=== PATIENT | male | born 1985 | race Caucasian/White ===

== ENCOUNTER 2016-12-10 10:32 | Emergency (ER) | payer OTHER ==
[2016-12-10] MEDS ORDERED: Metoclopramide IV* 5 MG/ML 2 ML VIAL IV ONE (11:05)
[2016-12-10] MEDS ORDERED: Morphine INJ* 4 MG/ML 1 ML SYRINGE IV ONE (11:05)
[2016-12-10] MEDS ORDERED: Pantoprazole IV* 40 MG IV ONE (11:05)
[2016-12-10] MEDS: NS 0.9% 1000 ML* 3,000 ML IV ONE ×2 (11:15→14:53)
[2016-12-10 11:26] LABS: Hematocrit 47 % (42-52); Hemoglobin 15.7 g/dl (14.0-18.0); Mean Corpuscular HGB Conc 34 g/dl (31-36); Mean Corpuscular Hemoglobin 31 pg (27-31); Mean Corpuscular Volume 93 fL (80-94); Mean Platelet Volume 9 um3 (7.4-10.4); Red Blood Count 5.05 10^6/ul (4.0-5.4); Red Cell Distribution Width 13 % (10.5-15); White Blood Count 14.2 10^3/ul (3.5-10.8)
[2016-12-10 11:42] LABS: ALT 21 U/L (7-52); Albumin 4.7 g/dL (3.2-5.2); Alkaline Phosphatase 45 U/L (34-104); Amylase 79 U/L (29-103); Blood Urea Nitrogen 22 mg/dL (6-24); C Reactive Protein 2.15 mg/L (< 5.00); CO2 Carbon Dioxide 25 mmol/L (22-32); Calcium 9.4 mg/dL (8.6-10.3); Chloride 99 mmol/L (101-111); Creatine Kinase 70 U/L (10-223); EGFR African American 129.1 (>60); EGFR Non-African American 100.4 (>60); Globulin 2.8 g/dL (2-4); Glucose 115 mg/dL (70-100); Lipase 23 U/L (11.0-82.0); Sodium 132 mmol/L (133-145); Total Protein 7.5 g/dL (6.4-8.9)
[2016-12-10] MEDS ORDERED: Iohexol 300* (CONTRAST) 10 ML SDV IV ONE (12:45)
[2016-12-10 14:23] VITALS: BP 127/75
--- NOTE | 2016-12-10 14:25 | RAD ---
INDICATION: Abdominal pain, vomiting. Question small bowel obstruction, colitis, peritonitis, gallbladder disease. COMPARISON: March 25, 2016 CT. TECHNIQUE: Multidetector CT images were obtained from the lung bases to the ischial tuberosities with 92 mL Omnipaque 300 IV and oral contrast. Multiplanar reformation. REPORT: Unremarkable visualized inferior thorax. Mildly decreased density of the liver consistent with fatty infiltration. Negative for focal hepatic lesions or biliary dilatation. No CT abnormality of the gallbladder. Unremarkable pancreas and spleen. Negative for CT abnormality of the upper GI or small bowel. The appendix is not visualized. Negative for RIGHT lower quadrant inflammatory change. Oral contrast extends to the transverse colon. Mild diverticulosis at the distal descending and sigmoid colon without findings of diverticulitis. Negative for ascites, free air, hernias. Normal adrenal glands. Symmetric nephrograms and pyelograms. Unchanged mildly hyperdense 1.7 cm and 2.0 cm exophytic cortical lesions at the midpole of the LEFT kidney compared with the December 16, 2015 exam. Additional smaller LEFT renal cortical hypodense lesions without change. Negative for hydronephrosis. Unremarkable ureters and urinary bladder. Symmetric seminal vesicles. Negative for lymphadenopathy. Normal diameter abdominal aorta and iliac arteries. Physiologic distention of the IVC. Negative for suspicious osseous lesions. IMPRESSION: 1. Suggestion of mild fatty infiltration of the liver. 2. No CT abnormality of the gallbladder or biliary dilatation. 3. The appendix is not visualized as on the prior exam. There is no inflammatory change at the RIGHT lower quadrant. 4. Mild colonic diverticulosis without findings of diverticulitis. 5. Unchanged exophytic mildly hyperdense cortical lesions of the LEFT kidney compared with the prior exam favoring benign etiology. Nonemergent renal ultrasound suggested to differentiate between a hyperdense cysts and solid lesions.
[2016-12-10 15:24] LABS: Urine Bilirubin Negative (Negative); Urine Glucose Negative (Negative); Urine Nitrite Negative (Negative)
--- NOTE | 2016-12-10 18:05 | ED ---
Shiva Cruz SooYoung, scribed for Monico Ruano MD on 12/10/16 at 1052 . Abdominal Pain/Male - HPI Summary HPI Summary: A 31 y/o M ESTRELLA presents to ED with c/o constant umbilical abd pain onset two days ago. Associated sx: nausea/dry-heaving, intermittent fever and chills. Denies: bowel changes, SOB, cough. Pt tried going to work two days ago but was unable to finish the shift. Yesterday, he was able to eat some soup and he did sleep last night. Aggravating: walking/movement. No PSHx. No recent travel. PMHx : GERD. Smoker, rare EtOH. Pt works in a dairy lab. - History of Current Complaint Chief Complaint: EDAbdPain Stated Complaint: ABD PAIN Time Seen by Provider: 12/10/16 10:45 Hx Obtained From: Patient Onset/Duration: Lasting Days, Still Present Timing: Constant Severity Initially: Moderate Severity Currently: Severe Location: Umbilical Aggravating Factor(s): Movement Associated Signs And Symptoms: Positive: Fever - and chills, Nausea. Negative: Cough, Constipation, Blood in Stool, Diarrhea - Allergies/Home Medications Allergies/Adverse Reactions: Allergies Allergy/AdvReac Type Severity Reaction Status Date / Time No Known Allergies Allergy Verified 03/25/16 10:21 PMH/Surg Hx/FS Hx/Imm Hx Previously Healthy: No Endocrine/Hematology History: Denies: Hx Anticoagulant Therapy, Hx Blood Disorders, Hx Diabetes Cardiovascular History: Denies: Hx Congestive Heart Failure, Hx Hypertension Respiratory History: Denies: Hx Asthma GI History: Reports: Hx Gastroesophageal Reflux Disease History: Reports: Other Problems/Disorders - kidney finding Denies: Hx Renal Disease Musculoskeletal History: Denies: Hx Arthritis Psychiatric History: Denies: Hx Eating Disorder Infectious Disease History: No Infectious Disease History: Denies: Hx Clostridium Difficile, Hx Hepatitis, Hx Human Immunodeficiency Virus (HIV), Hx of Known/Suspected MRSA, Hx Shingles, Hx Tuberculosis, History Other Infectious Disease, Traveled Outside the [place] in Last 30 Days - Family History Known Family History: Positive: Cardiac Disease, Hypertension, Other - cancer, kidney - Social History Occupation: Employed Full-time Lives: Alone Alcohol Use: Occasionally Hx Substance Use: Yes - previously 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 The skin is warm and dry and skin color reflects adequate perfusion. DECREASED SKIN TURGOR. HEENT: The head is normocephalic and atraumatic. The pupils are equal and reactive. PUPILS NOT PINPOINT. The conjunctivae are clear and without drainage. Nares are patent and without drainage. Mouth reveals moist mucous membranes and the throat is without erythema and exudate. TEETH IN POOR REPAIR. The external ears are intact. The ear canals are patent and without drainage. The tympanic membranes are intact. \ Neck is supple with full range of motion and non-tender. There are no carotid bruits. There is no neck vein distension. Respiratory: Chest is non-tender. DIFFUSE MILDLY DIMINISHED BREATH SOUNDS. NEG RALES AND RHONCHI. Cardiovascular: Hear is regular rate and rhythm. There is no murmur or rub auscultated. There is no peripheral edema and pulses are symmetrical and equal. Abdomen: DIFFUSE TENDERNESS TO PERCUSSION AND PALPATION. PT PULLED DR'S HAND AWAY DURING EXAM. Musculoskeletal: There is no back pain noted. Extremities are non-tender with full range of motion. There is good capillary refill. There is no peripheral edema or calf tenderness elicited. Neurological: Patient is alert and oriented to person, place and time. The patient has symmetrical motor strength in all four extremities. Cranial nerves are grossly intact. Deep tendon reflexes are symmetrical and equal in all four extremities. Psychiatric: The patient has an appropriate affect and does not exhibit any anxiety or depression. Triage Information Reviewed: Yes Vital Signs On Initial Exam: Initial Vitals Temp Pulse Resp BP Pulse Ox 96.5 F 50 16 137/88 98 12/10/16 10:43 12/10/16 10:43 12/10/16 10:43 12/10/16 10:43 12/10/16 10:43 Vital Signs Reviewed: Yes Diagnostics - Vital Signs Vital Signs Temp Pulse Resp BP Pulse Ox 12/10/16 10:48 98.4 F 47 16 137/79 100 12/10/16 10:43 96.5 F 50 16 137/88 98 - Laboratory Lab Results: Lab Results 12/10/16 12/10/16 12/10/16 Range/Units 11:08 11:08 11:08 WBC 14.2 H (3.5-10.8) 10^3/ul RBC 5.05 (4.0-5.4) 10^6/ul Hgb 15.7 (14.0-18.0) g/dl Hct 47 (42-52) % MCV 93 (80-94) fL MCH 31 (27-31) pg MCHC 34 (31-36) g/dl RDW 13 (10.5-15) % Plt Count 170 (150-450) 10^3/ul MPV 9 (7.4-10.4) um3 Neut % (Auto) 87.7 H (38-83) % Lymph % (Auto) 7.7 L (25-47) % [place] % (Auto) 3.9 (1-9) % Eos % (Auto) 0.2 (0-6) % Baso % (Auto) 0.5 (0-2) % Absolute Neuts (auto) 12.5 H (1.5-7.7) 10^3/ul Absolute Lymphs (auto) 1.1 (1.0-4.8) 10^3/ul Absolute Monos (auto) 0.6 (0-0.8) 10^3/ul Absolute Eos (auto) 0 (0-0.6) 10^3/ul Absolute Basos (auto) 0.1 (0-0.2) 10^3/ul Absolute Nucleated RBC 0 10^3/ul Nucleated RBC % 0 Sodium 132 L (133-145) mmol/L Potassium TNP Chloride 99 L (101-111) mmol/L Carbon Dioxide 25 (22-32) mmol/L Anion Gap TNP BUN 22 (6-24) mg/dL Creatinine 0.88 (0.67-1.17) mg/dL Est GFR ( Amer) 129.1 (>60) Est GFR (Non-Af Amer) 100.4 (>60) BUN/Creatinine Ratio 25.0 H (8-20) Glucose 115 H (70-100) mg/dL Lactic Acid 1.1 (0.5-2.0) mmol/L Calcium 9.4 (8.6-10.3) mg/dL Total Bilirubin 0.80 (0.2-1.0) mg/dL AST TNP ALT 21 (7-52) U/L Alkaline Phosphatase 45 (34-104) U/L Total Creatine Kinase 70 (10-223) U/L C-Reactive Protein 2.15 (< 5.00) mg/L Total Protein 7.5 (6.4-8.9) g/dL Albumin 4.7 (3.2-5.2) g/dL Globulin 2.8 (2-4) g/dL Albumin/Globulin Ratio 1.7 (1-3) Amylase 79 (29-103) U/L Lipase 23 (11.0-82.0) U/L Urine Color Urine Appearance Urine pH (5-9) Ur Specific [place] (1.010-1.030) Urine Protein (Negative) Urine Ketones (Negative) Urine Blood (Negative) Urine Nitrate (Negative) Urine Bilirubin (Negative) Urine Urobilinogen (Negative) Ur Leukocyte Esterase (Negative) Urine Glucose (Negative) 12/10/16 12/10/16 Range/Units 13:50 14:50 WBC (3.5-10.8) 10^3/ul RBC (4.0-5.4) 10^6/ul Hgb (14.0-18.0) g/dl Hct (42-52) % MCV (80-94) fL MCH (27-31) pg MCHC (31-36) g/dl RDW (10.5-15) % Plt Count (150-450) 10^3/ul MPV (7.4-10.4) um3 Neut % (Auto) (38-83) % Lymph % (Auto) (25-47) % [place] % (Auto) (1-9) % Eos % (Auto) (0-6) % Baso % (Auto) (0-2) % Absolute Neuts (auto) (1.5-7.7) 10^3/ul Absolute Lymphs (auto) (1.0-4.8) 10^3/ul Absolute Monos (auto) (0-0.8) 10^3/ul Absolute Eos (auto) (0-0.6) 10^3/ul Absolute Basos (auto) (0-0.2) 10^3/ul Absolute Nucleated RBC 10^3/ul Nucleated RBC % Sodium (133-145) mmol/L Potassium 3.8 Chloride (101-111) mmol/L Carbon Dioxide (22-32) mmol/L Anion Gap BUN (6-24) mg/dL Creatinine (0.67-1.17) mg/dL Est GFR ( Amer) (>60) Est GFR (Non-Af Amer) (>60) BUN/Creatinine Ratio (8-20) Glucose (70-100) mg/dL Lactic Acid (0.5-2.0) mmol/L Calcium (8.6-10.3) mg/dL Total Bilirubin (0.2-1.0) mg/dL AST 12 L ALT (7-52) U/L Alkaline Phosphatase (34-104) U/L Total Creatine Kinase (10-223) U/L C-Reactive Protein (< 5.00) mg/L Total Protein (6.4-8.9) g/dL Albumin (3.2-5.2) g/dL Globulin (2-4) g/dL Albumin/Globulin Ratio (1-3) Amylase (29-103) U/L Lipase (11.0-82.0) U/L Urine Color Yellow Urine Appearance Clear Urine pH 6.0 (5-9) Ur Specific [place] > 1.060 H (1.010-1.030) Urine Protein Negative (Negative) Urine Ketones 1+ H (Negative) Urine Blood Negative (Negative) Urine Nitrate Negative (Negative) Urine Bilirubin Negative (Negative) Urine Urobilinogen Negative (Negative) Ur Leukocyte Esterase Negative (Negative) Urine Glucose Negative (Negative) Result Diagrams: 12/10/16 11:08 12/10/16 13:50 Lab Statement: Any lab studies that have been ordered have been reviewed, and results considered in the medical decision making process. - CT A/P CT CT Interpretation: Positive (See Comments) - IMPRESSION: 1. Suggestion of mild fatty infiltration of the liver. 2. No CT abnormality of the gallbladder or biliary dilatation. 3. The appendix is not visualized as on the prior exam. There is no inflammatory change at the RIGHT lower quadrant. 4. Mild colonic diverticulosis without findings of diverticulitis. 5. Unchanged exophytic mildly hyperdense cortical lesions of the LEFT kidney compared with the prior exam favoring benign etiology. Nonemergent renal ultrasound suggested to differentiate between a hyperdense cysts and solid lesions. CT Interpretation Completed By: Radiologist Re-Evaluation - Re-Evaluation 1 Re-Evaluation Time: 15:02 Change: Improved Comment: Discussing results with pt. Upon further discussion, pt has been having intermittent abd pains over past 10 years. Will D/C home. Abdominal Pain Fem Course/Dx - Course Course Of Treatment: Pt is a 31 y/o M with PMHx: GERD presenting with umbilical abd pain onset two days ago. Associated sx: nausea/dry-heaving, intermittent fever and chills. Denies: bowel changes, SOB, cough. No PSHx on abd. No recent travel. Smoker, rare EtOH. Pt given fluids, Protonix, Morphine and Reglan. A/P CT found 1. Suggestion of mild fatty infiltration of the liver. 2. No CT abnormality of the gallbladder or biliary dilatation. 3. The appendix is not visualized as on the prior exam. There is no inflammatory change at the RLQ. 4. Mild colonic diverticulosis without findings of diverticulitis. 5. Unchanged exophytic mildly hyperdense cortical lesions of the LEFT kidney compared with the prior exam favoring benign etiology. Nonemergent renal ultrasound suggested to differentiate between a hyperdense cysts and solid lesions. UA is positive for ketones (1+), specific gravity 1.060. Will D/C home with reglan and nexium. - Diagnoses Differential Diagnosis/HQI/PQRI: Appendicitis, Bowel Obstruction, Gall Bladder Disease, Pancreatitis, Peptic Ulcer Disease, Urinary Tract Infection Provider Diagnoses: Peptic ulcer disease, Dehydration Discharge - Discharge Plan Condition: Stable Disposition: HOME Prescriptions: Esomeprazole(NF) [Nexium(NF)] 20 mg PO DAILY #30 cap Metoclopramide TAB* [Reglan TAB*] 10 mg PO Q6H PRN #120 tab PRN Reason: nausea Patient Education Materials: Metoclopramide (By mouth), Esomeprazole (By mouth) , Peptic Ulcer (ED) Referrals: Korina Pulido MD [Medical Doctor] - Jazzy Fuentes MD [Primary Care Provider] - Additional Instructions: Follow up with Dr. Pulido, cadd technician at [facility] this week. Follow up with your primary care provider this week. Take your medications as prescribed. Please return to the ED with new or worsening symptoms. The documentation as recorded by the Shiva araya SooYoung accurately reflects the service I personally performed and the decisions made by me, Monico Ruano MD.
== END 2016-12-10 15:52 | disposition home or self-care (01) ==
LOC: ED 10:32
DX: K27.9 Peptic ulcer, site unspecified, unspecified as acute or chronic, without hemorrhage or perforation (principal); E86.0 Dehydration; R50.9 Fever, unspecified; R10.9 Unspecified abdominal pain; R11.0 Nausea; F17.210 Nicotine dependence, cigarettes, uncomplicated
CPT/HCPCS: 36415; 74177; 80053; 81003; 82150; 82550; 83605; 83690; 85025; 86140; 96374; 96375; 99284; J2270; Q9967

== ENCOUNTER 2017-12-20 10:35 | Emergency (ER) | payer BC, OTHER ==
[2017-12-20] MEDS ORDERED: NS 0.9% 1000 ML* 1,000 ML IV ONE (12:04)
[2017-12-20] MEDS ORDERED: Metoclopramide IV* 5 MG/ML 2 ML VIAL IV ONE (12:04)
[2017-12-20 12:32] LABS: ABS Basophils 0 10^3/ul (0-0.2); ABS Eosinophils 0 10^3/ul (0-0.6); ABS Lymphocytes 1.1 10^3/ul (1.0-4.8); ABS Monocytes 0.6 10^3/ul (0-0.8); ABS Neutrophils 6.1 10^3/ul (1.5-7.7); ABS Nucleated RBC 0 10^3/ul; Eosinophil % 0.2 % (0-6); Hematocrit 48 % (42-52); Lymphocyte % 14.4 % (25-47); Mean Corpuscular HGB Conc 35 g/dl (31-36); Mean Corpuscular Hemoglobin 32 pg (27-31); Mean Corpuscular Volume 92 fL (80-94); Mean Platelet Volume 8.2 um3 (7.4-10.4); Nucleated Red Blood Cells % 0.2; Platelet Count 179 10^3/ul (150-450); Red Blood Count 5.28 10^6/ul (4.0-5.4); Red Cell Distribution Width 13 % (10.5-15); White Blood Count 7.9 10^3/ul (3.5-10.8)
[2017-12-20 12:48] LABS: EGFR Non-African American 84.1 (>60)
[2017-12-20 12:58] LABS: Urine Appearance Clear; Urine Blood Negative (Negative); Urine Color Yellow; Urine Ketones 2+ (Negative); Urine Protein 1+(30 mg/dL) (Negative); Urine Specific Gravity 1.028 (1.010-1.030); Urine Urobilinogen Positive (Negative)
[2017-12-20 14:08] VITALS: BP 112/66
--- NOTE | 2017-12-20 21:48 | ED ---
Cortez Cruz Thomas, scribed for Steven Kuhn MD on 12/20/17 at 1234 . Abdominal Pain/Male - HPI Summary HPI Summary: The patient is a 32 year old male complaining of diffuse abdominal pain that began two days ago. The pain is described as sharp. The pain was somewhat better two days ago, but the pain returned today. The patient also complains of nausea, and he has been vomiting. He had an episode of hematemesis in the last few days ago. The patient denies diarrhea, constipation, and urinary symptoms. He has similar prior episodes of pain. - History of Current Complaint Chief Complaint: EDAbdPain Stated Complaint: ABD PAIN Time Seen by Provider: 12/20/17 11:49 Hx Obtained From: Patient Onset/Duration: Lasting Days - 2, Still Present Timing: Constant Severity Currently: Severe Pain Intensity: 8 Pain Scale Used: 0-10 Numeric Location: Diffuse Character: Sharp Alleviating Factor(s): Nothing Associated Signs And Symptoms: Positive: Nausea, Vomiting, Other - Hematemesis. Negative: Constipation, Urinary Symptoms, Diarrhea - Allergies/Home Medications Allergies/Adverse Reactions: Allergies Allergy/AdvReac Type Severity Reaction Status Date / Time No Known Allergies Allergy Verified 12/20/17 11:06 Home Medications: Home Medications NK [No Home Medications Reported] 12/20/17 [History Confirmed 12/20/17] PMH/Surg Hx/FS Hx/Imm Hx Endocrine/Hematology History: Denies: Hx Anticoagulant Therapy, Hx Blood Disorders, Hx Diabetes Cardiovascular History: Denies: Hx Congestive Heart Failure, Hx Hypertension Respiratory History: Denies: Hx Asthma GI History: Reports: Hx Gastroesophageal Reflux Disease History: Reports: Other Problems/Disorders - kidney finding Denies: Hx Renal Disease Musculoskeletal History: Denies: Hx Arthritis Psychiatric History: Denies: Hx Eating Disorder Infectious Disease History: No Infectious Disease History: Denies: Hx Clostridium Difficile, Hx Hepatitis, Hx Human Immunodeficiency Virus (HIV), Hx of Known/Suspected MRSA, Hx Shingles, Hx Tuberculosis, History Other Infectious Disease, Traveled Outside the [place] in Last 30 Days - Family History Known Family History: Positive: Cardiac Disease, Hypertension, Other - cancer, kidney - Social History Alcohol Use: Occasionally Hx Substance Use: Yes - previously 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 Negative: Diarrhea Positive: no symptoms reported All Other Systems Reviewed And Are Negative: Yes Physical Exam - Summary Physical Exam Summary: Appearance: The patient is well-nourished in no acute distress and in no acute pain. Skin: The skin is warm and dry and skin color reflects adequate perfusion. HEENT: The head is normocephalic and atraumatic. The pupils are equal and reactive. The conjunctivae are clear and without drainage. Nares are patent and without drainage. Mouth reveals moist mucous membranes and the throat is without erythema and exudate. The external ears are intact. The ear canals are patent and without drainage. The tympanic membranes are intact. Neck: the neck is supple with full range of motion and non-tender. There are no carotid bruits. There is no neck vein distension. Respiratory: Chest is non-tender. Lungs are clear to auscultation and breath sounds are symmetrical and equal. Cardiovascular: Heart is regular rate and rhythm. There is no murmur or rub auscultated. There is no peripheral edema and pulses are symmetrical and equal. Abdomen: The abdomen is soft. He has diffuse tenderness and there is voluntary guarding. There are normal bowel sounds heard in all four quadrants and there is no organomegaly palpated. Musculoskeletal: There is no back tenderness noted. Extremities are non-tender with full range of motion. There is good capillary refill. There is no peripheral edema or calf tenderness elicited. Neurological: Patient is alert and oriented to person, place and time. The patient has symmetrical motor strength in all four extremities. Cranial nerves are grossly intact. Deep tendon reflexes are symmetrical and equal in all four extremities. Psychiatric: The patient has an appropriate affect and does not exhibit any anxiety or depression. Triage Information Reviewed: Yes Vital Signs On Initial Exam: Initial Vitals Temp Pulse Resp BP Pulse Ox 99.2 F 61 18 127/80 100 12/20/17 11:03 12/20/17 11:03 12/20/17 11:03 12/20/17 11:03 12/20/17 11:03 Vital Signs Reviewed: Yes Diagnostics - Vital Signs Vital Signs Temp Pulse Resp BP Pulse Ox 12/20/17 11:03 99.2 F 61 18 127/80 100 - Laboratory Lab Results: Lab Results 12/20/17 12/20/17 12/20/17 Range/Units 12:20 12:20 12:20 WBC 7.9 (3.5-10.8) 10^3/ul RBC 5.28 (4.0-5.4) 10^6/ul Hgb 17.0 (14.0-18.0) g/dl Hct 48 (42-52) % MCV 92 (80-94) fL MCH 32 H (27-31) pg MCHC 35 (31-36) g/dl RDW 13 (10.5-15) % Plt Count 179 (150-450) 10^3/ul MPV 8.2 (7.4-10.4) um3 Neut % (Auto) 77.9 (38-83) % Lymph % (Auto) 14.4 L (25-47) % [place] % (Auto) 7.2 H (0-7) % Eos % (Auto) 0.2 (0-6) % Baso % (Auto) 0.3 (0-2) % Absolute Neuts (auto) 6.1 (1.5-7.7) 10^3/ul Absolute Lymphs (auto) 1.1 (1.0-4.8) 10^3/ul Absolute Monos (auto) 0.6 (0-0.8) 10^3/ul Absolute Eos (auto) 0 (0-0.6) 10^3/ul Absolute Basos (auto) 0 (0-0.2) 10^3/ul Absolute Nucleated RBC 0 10^3/ul Nucleated RBC % 0.2 Sodium 133 L (139-145) mmol/L Potassium 3.6 (3.5-5.0) mmol/L Chloride 93 L (101-111) mmol/L Carbon Dioxide 29 (22-32) mmol/L Anion Gap 11 (2-11) mmol/L BUN 18 (6-24) mg/dL Creatinine 1.02 (0.67-1.17) mg/dL Est GFR ( Amer) 108.2 (>60) Est GFR (Non-Af Amer) 84.1 (>60) BUN/Creatinine Ratio 17.6 (8-20) Glucose 104 H (70-100) mg/dL Lactic Acid 0.9 (0.5-2.0) mmol/L Calcium 9.6 (8.6-10.3) mg/dL Total Bilirubin 1.30 H (0.2-1.0) mg/dL AST 17 (13-39) U/L ALT 17 (7-52) U/L Alkaline Phosphatase 66 (34-104) U/L C-Reactive Protein 1.53 (< 5.00) mg/L Total Protein 7.5 (6.4-8.9) g/dL Albumin 4.9 (3.2-5.2) g/dL Globulin 2.6 (2-4) g/dL Albumin/Globulin Ratio 1.9 (1-3) Lipase 18 (11.0-82.0) U/L Urine Color Urine Appearance Urine pH (5-9) Ur Specific [place] (1.010-1.030) Urine Protein (Negative) Urine Ketones (Negative) Urine Blood (Negative) Urine Nitrate (Negative) Urine Bilirubin (Negative) Urine Urobilinogen (Negative) Ur Leukocyte Esterase (Negative) Urine WBC (Auto) (Absent) Urine RBC (Auto) (Absent) Urine Bacteria (Absent) Urine Glucose (Negative) 12/20/17 Range/Units 12:34 WBC (3.5-10.8) 10^3/ul RBC (4.0-5.4) 10^6/ul Hgb (14.0-18.0) g/dl Hct (42-52) % MCV (80-94) fL MCH (27-31) pg MCHC (31-36) g/dl RDW (10.5-15) % Plt Count (150-450) 10^3/ul MPV (7.4-10.4) um3 Neut % (Auto) (38-83) % Lymph % (Auto) (25-47) % [place] % (Auto) (0-7) % Eos % (Auto) (0-6) % Baso % (Auto) (0-2) % Absolute Neuts (auto) (1.5-7.7) 10^3/ul Absolute Lymphs (auto) (1.0-4.8) 10^3/ul Absolute Monos (auto) (0-0.8) 10^3/ul Absolute Eos (auto) (0-0.6) 10^3/ul Absolute Basos (auto) (0-0.2) 10^3/ul Absolute Nucleated RBC 10^3/ul Nucleated RBC % Sodium (139-145) mmol/L Potassium (3.5-5.0) mmol/L Chloride (101-111) mmol/L Carbon Dioxide (22-32) mmol/L Anion Gap (2-11) mmol/L BUN (6-24) mg/dL Creatinine (0.67-1.17) mg/dL Est GFR ( Amer) (>60) Est GFR (Non-Af Amer) (>60) BUN/Creatinine Ratio (8-20) Glucose (70-100) mg/dL Lactic Acid (0.5-2.0) mmol/L Calcium (8.6-10.3) mg/dL Total Bilirubin (0.2-1.0) mg/dL AST (13-39) U/L ALT (7-52) U/L Alkaline Phosphatase (34-104) U/L C-Reactive Protein (< 5.00) mg/L Total Protein (6.4-8.9) g/dL Albumin (3.2-5.2) g/dL Globulin (2-4) g/dL Albumin/Globulin Ratio (1-3) Lipase (11.0-82.0) U/L Urine Color Yellow Urine Appearance Clear Urine pH 6.0 (5-9) Ur Specific [place] 1.028 (1.010-1.030) Urine Protein 1+(30 mg/dl) A (Negative) Urine Ketones 2+ A (Negative) Urine Blood Negative (Negative) Urine Nitrate Negative (Negative) Urine Bilirubin Negative (Negative) Urine Urobilinogen Positive A (Negative) Ur Leukocyte Esterase Negative (Negative) Urine WBC (Auto) Trace(0-5/hpf) (Absent) Urine RBC (Auto) Trace(0-2/hpf) (Absent) Urine Bacteria Absent (Absent) Urine Glucose Negative (Negative) Result Diagrams: 12/20/17 12:20 12/20/17 12:20 Lab Statement: Any lab studies that have been ordered have been reviewed, and results considered in the medical decision making process. Re-Evaluation - Re-Evaluation First Eval Re-Evaluation Time: 14:08 Change: Improved Comment: The patient feels a lot better and is ready to go home. Abdominal Pain Fem Course/Dx - Course Course Of Treatment: Mr. Olmedo has presented with these symptoms many times he tells me and has had CT scans and labs and no diagnosis has been made. He says that he usually gets hydrated and anti-nausea medicine and feels better. That's what happened today. - Diagnoses Provider Diagnoses: Abdominal pain Discharge - Sign-Out/Discharge Documenting (check all that apply): Discharge/Admit/Transfer - Discharge Plan Condition: Stable Disposition: HOME Patient Education Materials: Abdominal Pain (ED) Referrals: Jazzy Fuentes MD [Primary Care Provider] - 3 Days Additional Instructions: Follow up with your primary care physician in three days. Return to the emergency department for any new or worsening symptoms. - Billing Disposition and Condition Condition: STABLE Disposition: HOME The documentation as recorded by the Cortez araya Thomas accurately reflects the service I personally performed and the decisions made by me, Steven Kuhn MD.
== END 2017-12-20 14:16 | disposition home or self-care (01) ==
LOC: ED 10:35
DX: R10.9 Unspecified abdominal pain (principal); F17.210 Nicotine dependence, cigarettes, uncomplicated
CPT/HCPCS: 36415; 80053; 81003; 81015; 83605; 83690; 85025; 86140; 87086; 96361; 96374; 99282; J2765

== ENCOUNTER 2019-05-31 13:18 | Emergency (ER) | payer BC ==
[2019-05-31 13:46] VITALS: BP 126/87
--- NOTE | 2019-05-31 13:56 | UC ---
Ear Complaint HPI - HPI Summary HPI Summary: 34 yo male presents with right ear pain. He tells me that for the last 5-7 days he has had right ear pain with some mild drainage. He wears ear plugs at work frequently. He had leftover amoxicillin at home and took this BID for 3 days with no change in his symptoms. He denies fever, chills, headache, dizziness, trauma, sinus symptoms, sore throat. - History of Current Complaint Chief Complaint: UCEar Stated Complaint: EAR PLUGGED Time Seen by Provider: 05/31/19 13:55 Hx Obtained From: Patient Onset/Duration: Gradual Onset Severity Initially: Mild Severity Currently: Moderate Pain Intensity: 6 Pain Scale Used: 0-10 Numeric - Allergies/Home Medications Allergies/Adverse Reactions: Allergies Allergy/AdvReac Type Severity Reaction Status Date / Time No Known Allergies Allergy Verified 05/31/19 13:46 Home Medications: Home Medications Acetaminophen [Tylenol] 1,000 mg PO ONCE PRN 05/31/19 [History Confirmed ] PMH/Surg Hx/FS Hx/Imm Hx - Additional Past Medical History Additional PMH: None Other History Of: Negative For: Anticoagulant Therapy - Surgical History Surgical History: Yes Surgery Procedure, Year, and Place: varicocele age 11 - Family History Known Family History: Positive: Cardiac Disease, Hypertension, Other - cancer, kidney - Social History Lives: With Family Alcohol Use: Rare Substance Use Type: None Substance Use Comment - Amount & Last Used: unk Smoking Status (MU): Heavy Every Day Tobacco Smoker Type: Cigarettes Amount Used/How Often: 1/2 ppd Review of Systems All Other Systems Reviewed And Are Negative: No Constitutional: Positive: Negative Skin: Positive: Negative Eyes: Positive: Negative ENT: Positive: Ear Ache Respiratory: Positive: Negative Cardiovascular: Positive: Negative Gastrointestinal: Positive: Negative Neurological: Positive: Negative Psychological: Positive: Negative Physical Exam - Summary Physical Exam Summary: GENERAL: NAD. WDWN. No pain distress. SKIN: No rashes, sores, lesions, or open wounds. HEENT: Head: AT/NC Eyes: EOM intact. Conjunctiva clear without inflammation or discharge. Ears: Hearing grossly normal. TMs intact, no bulging, erythema, or edema. RIGHT EAR CANAL: Moderate edema and mild clear/yellow discharge. Nose: Nasal mucosa pink and moist. NTTP maxillary and frontal sinus. Throat: Posterior oropharynx without exudates, erythema, or tonsillar enlargement. Uvula midline. NECK: Supple. Nontender. No lymphadenopathy. CHEST: CTAB. No accessory muscle use. Breathing comfortably and in no distress. CV: RRR. Pulses intact. Cap refill <2seconds NEURO: Alert. PSYCH: Age appropriate behavior. Triage Information Reviewed: Yes Vital Signs: Initial Vital Signs Temp 99.7 F 05/31/19 13:43 Pulse 65 05/31/19 13:43 Resp 14 05/31/19 13:43 BP 126/87 05/31/19 13:43 Pulse Ox 98 05/31/19 13:43 Vital Signs Reviewed: Yes Ear Complaint Course/Dx - Course Course Of Treatment: Right otitis externa - Differential Dx/Diagnosis Provider Diagnosis: Otitis externa Discharge ED - Sign-Out/Discharge Documenting (check all that apply): Patient Departure All imaging exams completed and their final reports reviewed: No Studies - Discharge Plan Condition: Stable Disposition: HOME Prescriptions: Ofloxacin 0.3% (Ear Drop)* [Floxin 0.3% OTIC.TERESA (Ear Drop)] 5 drop RIGHT EAR BID 7 Days #1 btl Patient Education Materials: Otitis Externa (ED) Referrals: Jazzy Fuentes MD [Primary Care Provider] - Additional Instructions: If you develop a fever, shortness of breath, chest pain, new or worsening symptoms - please call your PCP or go to the ED immediately. - Billing Disposition and Condition Condition: STABLE Disposition: Home
== END 2019-05-31 14:12 | disposition home or self-care (01) ==
LOC: UCEAST 13:18
DX: H60.91 Unspecified otitis externa, right ear (principal); F17.210 Nicotine dependence, cigarettes, uncomplicated
CPT/HCPCS: 99212; G0463